=== PATIENT | male | born 1990 | race Caucasian/White ===

== ENCOUNTER 2018-09-03 11:18 | Emergency (ER) | payer OTHER ==
--- NOTE | 2018-09-03 11:42 | ER Document Report ---
HPI - HPI Patient complains to provider of: low back pain Time Seen by Provider: 09/03/18 11:27 Onset: Last week Onset/Duration: Sudden, Persistent Quality of pain: Burning, Stabbing Severity: Severe Pain Level: 5 Context: Patient presents emergency department with complaints of low back pain radiating to his left hip and down his left leg. Reports he cannot feel his foot. Patient reports history of back pain a few years ago when he was in the . He reports he basically stood up and then went to his knees. He was told that he had a T1-T2 disc rupture and also an L4 and L5 disc rupture. He reports he went through several years of treatment at camp the September had steroid injections several MRIs and CTs done. Patient was discharged from the in April 2017. He reports he has had a flareup every now and then but [place] roximately 1 week ago his back started hurting. He reports pain going down his left buttocks down his left leg. He denies fevers vomiting diarrhea. He denies trauma. He denies urinary bowel incontinence or retention. He reports his back was hurting so bad recently he laid on the floor and cried for 30 minutes. Associated Symptoms: None Exacerbated by: Standing, Movement, Walking Relieved by: Denies Similar symptoms previously: Yes Recently seen / treated by doctor: No Past Medical History - General Information source: Patient - Social History Smoking Status: Unknown if Ever Smoked Cigarette use (# per day): No - dip Frequency of alcohol use: None Drug Abuse: None Occupation: mechanical design engineer at [employer] Lives with: Family Family History: None Patient has suicidal ideation: No Patient has homicidal ideation: No - Medical History Medical History: Negative Surgical Hx: Negative Vertical Provider Document - CONSTITUTIONAL Agree With Documented VS: Yes Exam Limitations: No Limitations General Appearance: WD/WN, Mild Distress - winces when standing or moving - INFECTION CONTROL TRAVEL OUTSIDE OF THE [place] IN LAST 30 DAYS: No - HEENT HEENT: Atraumatic, Normocephalic - NECK Neck: Normal Inspection, Supple. negative: Lymphadenopathy-Left, Lymphadenopathy-Right - RESPIRATORY Respiratory: Breath Sounds Normal, No Respiratory Distress, Chest Non-Tender - CARDIOVASCULAR Cardiovascular: Regular Rate, Regular Rhythm - GI/ABDOMEN Gastrointestinal: Abdomen Soft - small ecchymosis to right lower abd. pt reports hickey - BACK Back: Normal Inspection - No obvious deformity good distal movement and sensation good reflexes, no weakness, c/o pain to left low back with elevation of left leg while sitting. no erythema no swelling no warmth. negative: CVA Tenderness-Right, CVA Tenderness-Left - MUSCULOSKELETAL/EXTREMETIES Musculoskeletal/Extremeties: MAEW - NEURO Level of Consciousness: Awake, Alert, Appropriate Motor/Sensory: No Motor Deficit - DERM Integumentary: Warm, Dry Adult Front & Back Diagram: 1 - reports pain tenderness 2 - radiates down left buttocks, hip, leg Course - Re-evaluation Re-evalutation: 09/03/18 12:47 Patient was able to ambulate to radiology without problems. Upon returning back to the pod 5 he laid on the floor. Normal 5 view L-spine x-ray. Patient instructed on results. Instructed on muscle relaxers and NSAIDs importance of follow-up with primary care provider he verbalized understanding to all instructions. Dictation of this chart was performed using voice recognition software; therefore, there may be some unintended grammatical errors. - Vital Signs Vital signs: Temp Pulse Resp BP Pulse Ox 98.1 F 66 18 142/80 H 97 09/03/18 11:26 09/03/18 11:26 09/03/18 11:26 09/03/18 11:26 09/03/18 11:26 - Diagnostic Test Radiology reviewed: Image reviewed, Reports reviewed Discharge - Discharge Clinical Impression: Low back pain Qualifiers: Chronicity: acute Back pain laterality: bilateral Sciatica presence: with sciatica Sciatica laterality: sciatica of left side Qualified Code(s): M54.42 - Lumbago with sciatica, left side Condition: Stable Disposition: HOME, SELF-CARE Instructions: Use of [id number] Ibuprofen ([facility]), Ice Packs ([facility]), Low Back Pain ([facility]), Muscle Relaxers ([facility]), Oral Narcotic Medication ([facility]), Sciatica ([facility]), Toradol Injection ([facility]) Additional Instructions: *You have been evaluated for back pain *Take medication as prescribed *Rest/Ice packs as directed *Follow up with a primary care provider within one week *Return to ED for worsening condition, changes, needs, urinary bowel retention or incontinence Prescriptions: Cyclobenzaprine HCl [Flexeril 10 Mg Tablet] 10 mg PO TID #30 tablet Ibuprofen [Motrin 800 mg Tablet] 800 mg PO Q8H PRN #20 tab PRN Reason: Oxycodone HCl/Acetaminophen [Percocet 5-325 mg Tablet] 1 tab PO Q6H PRN #10 tab PRN Reason: Forms: Return to Work Referrals: JH LOZA DO [Primary Care Provider] - Follow up in 3-5 days
[2018-09-03] MEDS ORDERED: KETOROLAC TROMETHAMINE 60 MG/2 ML SDV IM ONE (11:45)
[2018-09-03] MEDS ORDERED: CYCLOBENZAPRINE HCL 10 MG TABLET PO ONE (11:45)
--- NOTE | 2018-09-03 12:24 | RADIOLOGY REPORT (SQ) ---
EXAM DESCRIPTION: L SPINE WHOLE COMPLETED DATE/TIME: 09/03/2018 12:12 pm REASON FOR STUDY: back pain COMPARISON: None. NUMBER OF VIEWS: Five views including obliques. TECHNIQUE: AP, lateral, oblique, and sacral radiographic images acquired of the lumbar spine. LIMITATIONS: None. FINDINGS: MINERALIZATION: Normal. SEGMENTATION: Normal. No transitional anatomy. ALIGNMENT: Normal. VERTEBRAE: Maintained height. No fracture or worrisome bone lesion. DISCS: Preserved height. No significant osteophytes or end plate irregularity. POSTERIOR ELEMENTS: Pedicles and facets are intact. No pars defect or posterior arch defects. HARDWARE: None in the spine. PARASPINAL SOFT TISSUES: Normal. PELVIS: Intact as visualized. No fractures or worrisome bone lesions. SI joints intact. OTHER: No other significant finding. IMPRESSION: NORMAL 5 VIEW LUMBAR SPINE. TECHNICAL DOCUMENTATION: JOB ID: [id number]- All Rights Reserved Reading location - IP/workstation name: [email or web address]
[2018-09-03 13:05] VITALS: BP 124/66
== END 2018-09-03 13:07 | disposition home or self-care (01) ==
LOC: ER 11:18
DX: M54.42 Lumbago with sciatica, left side (principal)
CPT/HCPCS: 99283; 96372; 72110; J1885

== ENCOUNTER → 2018-09-06 | Outpatient (CLI) | payer OTHER ==
--- NOTE | 2018-09-06 12:48 | RADIOLOGY REPORT (SQ) ---
EXAM DESCRIPTION: MRI LUMBAR SPINE WITHOUT COMPLETED DATE/TIME: 09/06/2018 12:30 pm REASON FOR STUDY: LOW BACK PAIN (M54.5) M54.5 LOW BACK PAIN COMPARISON: None. TECHNIQUE: Sagittal and Axial imaging includes T1, T2, STIR and gradient echo sequences. Coronal T2/ HASTE imaging. LIMITATIONS: None. FINDINGS: VISUALIZED UPPER ABDOMEN: Limited evaluation. No acute or suspicious findings suggested. SEGMENTATION: No transitional anatomy. The lowest well-developed disc space is labeled L5-S1. ALIGNMENT: Anatomic. VERTEBRAE: Intact. BONE MARROW: Normal. No marrow replacement or reactive changes. DISC SIGNAL: The L5-S1 disc space is narrowed in there is decreased signal intensity. POSTERIOR ELEMENTS: Generally intact. No pars defect evident. HARDWARE: None in the spine. CORD AND CONUS: Normal in size and signal intensity. Conus at the T12-L1 level. Dorsal clumping of t he nerve roots. SOFT TISSUES: No aortic aneurysm seen. No bulky retroperitoneal adenopathy or mass. No paraspinal mas s or fluid. L1-L2: No significant spinal stenosis or exit foraminal stenosis. L2-L3: No significant spinal stenosis or exit foraminal stenosis. L3-L4: No significant spinal stenosis or exit foraminal stenosis. L4-L5: No significant spinal stenosis or exit foraminal stenosis. L5-S1: Left foraminal disc protrusion. There is increased soft tissue density within the spinal honorio l on the left that displaces the traversing nerve roots. LOWER THORACIC: Incompletely imaged. No stenosis seen. SACRUM: Visualized upper sacrum intact. OTHER: No other significant findings. IMPRESSION: Left foraminal disc protrusion at L5-S1 with likely extruded fragment within the spinal canal as described. 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 TECHNICAL DOCUMENTATION: JOB ID: [id number] [employer]- All Rights Reserved Reading location - IP/workstation name: [email or web address]
== END ==
LOC: RAD 11:51
PROVIDERS: ATTEND Physician Assistant
DX: M54.5 Low back pain (principal)
CPT/HCPCS: 72148